=== PATIENT | male | born 1995 | race Caucasian/White ===

== ENCOUNTER 2022-04-27 15:05 | Emergency (ER) | payer SELFPAY ==
[2022-04-27 15:06] VITALS: BP 157/99; PULSE 81; RESP 14; TEMP 36.8; O2SAT 100; BMI 20.7
--- NOTE | 2022-04-27 15:38 | EDS_ITS ---
HPI History of Present Illness Chief Complaint: Laceration Detail of Chief Complaint: Right forehead laceration Informant: patient Onset/Context/Timing Onset: Today and Hours Mechanism/Context: Blunt Injury Current Severity: Mild Maximum Severity: Mild Associated Symptoms Associated Symptoms: Negative for Parasthesias, Weakness, Loss of function, Inability to ambulate, Loss of consciousness or Amnesia Narrative Narrative: 26-year-old healthy male was cutting a tree that had fallen and a piece of the wood kicked back hitting him in his right forehead causing a laceration. This occurred 1 to 2 hours ago. He has had tetanus shot but not in the last 10 years will need an updated. Denies any other complaints except he was hit in his nose and he has some nosebleed but denies any bony tenderness. Left Tetanus Immunization: >10 years Prior similar symptoms: No Recent Illness/Hospitalization: No PFSH PFSH Medical History no medical history no medical history Home Medications NK 04/27/22 [History Last Taken Unknown] Allergy/AdvReac Type Severity Reaction Status Date / Time No Known Allergies Allergy Verified 04/27/22 15:06 Surgical History no surgical history no surgical history Social History Smoking Status: Never smoker ROS ROS ED ROS Narrative Denies recent illness. Review of Systems ROS Unobtainable: Denies due to encephalopathy Constitutional Constitutional ED: Denies chills or fever(s) Eyes Eyes: Denies blurry vision ENT ENT ED: Denies ear pain Cardiovascular Cardiovascular: Denies chest pain Respiratory/Chest Respiratory/Chest: Denies cough or dyspnea Gastrointestinal Gastrointestinal: Denies abdominal pain Genitourinary Genitourinary ED: Denies dysuria Musculoskeletal Musculoskeletal: Denies arthralgias Integumentary Denies abscess Neurologic Neurologic: Denies headache(s) Psychiatric Psychiatric: Denies anxiety Endocrine Endocrinology: Denies cold intolerance Hematologic/Lymphatic Hematologic/Lymphatic: Denies easy bleeding Allergic/Immunologic Allergic/Immunologic ED: Denies mouth swelling EXAM Physical Exam Narrative Exam Narrative: 26-year-old male no acute distress vital signs stable afebrile. H EENT exam is a irregular shaped laceration above his right eyebrow medially. It will need suture repaired. In both the skin and subcu tissue. I do not see any obvious foreign body. Pupils round reactive light. Dentition intact. Is a mild abrasion on the right side of his nose is not bleeding there is no nasal tenderness and currently no blood or active bleeding. Scalp nontender. Neck nontender. Lungs are clear. Heart regular rhythm. Abdomen soft nontender. Neurologic exam normal. No other acute findings. Const Vital Signs: 04/27/22 15:06 04/27/22 15:12 Temperature 98.2 F Temperature Source Temporal Pulse Rate 81 Respiratory Rate 14 Respiratory Effort Normal Non-Labored Respiratory Depth Normal Respiratory Pattern Normal Blood Pressure 157/99 H Blood Pressure Mean 118 Pulse Ox 100 Oxygen Delivery Method Room Air Room Air Positive well nourished and well developed; Negative for obese, cachectic, contractures or unkempt General Appearance ED: well developed and NAD; Negative for unkempt, cachectic or contractures Nutritional Appearance: Negative for cachectic or obese HEENT HEENT Narrative: Right forehead laceration. trauma; Negative for atraumatic Eyes PERRL and EOMs intact bilaterally Neck full ROM General: Negative for tenderness Chest Wall inspection of chest normal and palpation of chest normal Breast/Axilla Inspection: Negative for other Resp normal respiratory effort and clear to auscultation bilaterally Effort and Inspection: Negative for pain with movement Auscultation: Negative for rales, rhonchi or wheezes Cardio regular rhythm, S1 normal heart sound, S2 normal heart sound and no murmurs Jugular Venous Distention: Negative for other Palpation: Negative for palpable S3 Rate: regular rate Rhythm: Negative for abnormal rhythm GI normal to inspection, nondistended, normoactive bowel sounds, non-tender, non- distended and no masses Inspection: Negative for abdominal distention Auscultation: normoactive bowel sounds Palpation: soft; Negative for tender, guarding or rebound tenderness present Back/Spine normal to inspection General Back: Negative for CVA tenderness Thoracic Spine / Upper Back: Negative for thoracic spinal tenderness Extremity normal to inspection and full ROM General Extremety ED: Negative for deformity, edema or tenderness General Extremity: Negative for deformity or edema Neuro oriented x3, CN's II-XII intact bilaterally, moves all extremities, no focal motor deficits and no sensory deficits noted Sallie Coma Scale: document GCS findings Spontaneous Obeys Commands Oriented 15 Sensorium / Orientation: alert, oriented to person, oriented to place and oriented to time; Negative for orientation impaired, lethargic or stuporous Motor Exam: strength 5/5 throughout Psych mental status grossly normal and thought process normal Appearance: Negative for unkempt Attitude: No agitated Mood & Affect: Negative for depressed, anxious or tearful Skin no rashes or lesions noted and No no wounds Skin Narrative: Right forehead laceration. Irregular. Will need to be repaired. PROC Procedures Lacerations Right forehead laceration: Length: 1.18 in Depth: Sub Q Shape: Irregular Prep: Shure-Clens Laceration repair: Irrigated, Lidocaine, Local, Skin sutures and Wound explored Number of Sutures/[place]: 3 Suture Information: Ethilon, Simple and 5-0 Comment: Right forehead laceration. Approximately 3 cm. Irregular. Local anesthetized lidocaine. Cleaned with Shur-Clens. Washed with saline and irrigated with saline. Explored. No foreign body noted. Closed using 3 simple erupted 5-0 Ethilon sutures. Proper hemostasis wound closure is obtained. Patient tolerated procedure well. He and family were instructed on wound care and suture removal. Tetanus was updated. MDM MDM MDM Narrative Medical decision making narrative: 26-year-old cutting a downed tree when a piece of wood kicked back hitting his right forehead. He will need laceration repair. Tetanus will be updated. Discharge Plan Triage Chief Complaint: Laceration ED Provider: Mikal Solis Dx/Rx/DC Orders Clinical Impression: Forehead laceration Instructions: ED Laceration: All Closures Prescriptions: No Action NK Primary Care Provider: Allen Mota Referrals: Allen Mota DO [Primary Care Provider] - 10 Day for suture removal Activity Restrictions/Additional Instructions: Stitches out in 7 to 10 days. Keep the wound clean clean daily with soap and water and apply antibiotic ointment. Ice to the area. Motrin and Tylenol for pain. Your tetanus was updated and is good now for 10 years. Disposition Disposition: Home, Self Care
[2022-04-27] MEDS: Diphth,Pertuss(Acell),Tet Vac 0.5 ML Vial IM (15:49)
[2022-04-27] MEDS: Lidocaine 1% (20 ml mdv) 20 ML Vial 10 ML INFILT (16:15)
== END 2022-04-27 16:18 | disposition home or self-care (01) ==
PROVIDERS: Emergency Provider Emergency Medicine; PCP Family Medicine; Visit Provider Emergency Medicine
DX: S01.81XA Laceration without foreign body of other part of head, initial encounter (principal); W22.8XXA Striking against or struck by other objects, initial encounter; S00.31XA Abrasion of nose, initial encounter
CPT/HCPCS: 12013; 90715; 99284